=== PATIENT | male | born 1980 | race Caucasian/White ===

== ENCOUNTER 2017-01-20 12:30 | Emergency (ER) | payer MEDICAID ==
[~2017-01-20 12:30] MED LIST: CIPRO PO; DARVOCET-N 1001 TAB PO; HYDROCODONE-APA1 T30 PO; LORTAB 7.5-5001 TAB PO; MILK OF MAGNESIA PO; MOBIC PO; NO MEDICATIONS; PHENERGAN PO; SKELAXIN PO; VOLTAREN75 MG PO
== END 2017-01-20 12:50 | disposition home or self-care (01) ==
LOC: SED 12:30
DX: S33.5XXA Sprain of ligaments of lumbar spine, initial encounter (principal); F17.200 Nicotine dependence, unspecified, uncomplicated; W18.30XA Fall on same level, unspecified, initial encounter; Y92.488 Other paved roadways as the place of occurrence of the external cause
CPT/HCPCS: 99283

== ENCOUNTER → 2017-01-20 15:03 | Emergency (ER) | payer MEDICAID | END | disposition left against medical advice (07) | LOC: CED 15:03 | DX: S39.92XA Unspecified injury of lower back, initial encounter (principal); S29.9XXA Unspecified injury of thorax, initial encounter; W18.00XA Striking against unspecified object with subsequent fall, initial encounter; Y92.9 Unspecified place or not applicable | CPT/HCPCS: 99283 ==

== ENCOUNTER → 2017-03-07 | Outpatient (CLI) | payer MEDICAID ==
[2017-03-07 10:43] LABS: BASOPHIL% 0.5 % (0-2.5); EOSINOPHIL# 0.1 X10e3 (0-0.7); EOSINOPHIL% 1.3 % (0.0-7.0); HEMATOCRIT 45.9 % (38.0-50.0); HEMOGLOBIN 14.9 gm/dL (13.0-16.0); LYMPHOCYTE# 0.8 X10e3 (1.0-3.5); LYMPHOCYTE% 8.2 % (17.0-45.0); MEAN CELL VOLUME 90.8 FL (83-96); MEAN CORPUSCULAR HEMOGLOBIN 29.4 PG (28-34); MEAN CORPUSCULAR HGB CONC 32.4 g/dL (30-36); MEAN PLATELET VOLUME 8.1 FL (6.5-11.5); MONOCYTE# 1.1 X10e3 (0-1.0); MONOCYTE% 11.7 % (3.0-12.0); NEUTROPHIL# 7.2 X10e3 (1.5-7.1); NEUTROPHIL% 78.3 % (40-75); PLATELET COUNT 228 X10e3 (140-420); RED BLOOD COUNT 5.05 X10e (3.90-5.60); RED CELL DISTRIBUTION WIDTH 13.8 % (11.0-15.5); WHITE BLOOD COUNT 9.3 X10e3 (4.0-10.5)
[2017-03-07 10:45] LABS: DIFF IND NO
[2017-03-07 11:50] LABS: ALBUMIN SERUM 4.2 g/dL (3.5-5.0); BUN/CREATININE RATIO 17.77; CREATININE SERUM 0.9 mg/dL (0.6-1.4); POTASSIUM 3.6 mmol/L (3.5-5.1)
[2017-03-07 12:04] LABS: FOLATE (FOLIC ACID) 9.7 ng/mL (>5.8)
== END | disposition home or self-care (01) ==
LOC: CLAB 10:09
PROVIDERS: Nurse Practitioner
DX: E29.1 Testicular hypofunction (principal); E34.9 Endocrine disorder, unspecified; E78.5 Hyperlipidemia, unspecified; I10 Essential (primary) hypertension
CPT/HCPCS: 80053; 80061; 82607; 82746; 83036; 84402; 84403; 84443; 85025

== ENCOUNTER 2017-05-17 07:49 | Emergency (ER) | payer MEDICAID ==
[~2017-05-17] VITALS: Ht 203.2 cm; Wt 111.1 kg
== END 2017-05-17 09:55 | disposition left against medical advice (07) ==
LOC: CED 07:49
DX: Z53.21 Procedure and treatment not carried out due to patient leaving prior to being seen by health care provider (principal)